=== PATIENT | male | born 1950 | race Caucasian/White ===

== ENCOUNTER → 2021-01-05 15:44 | Outpatient (CLI) | payer MEDICARE, BC, SELFPAY ==
--- NOTE | 2021-01-05 15:51 | DI.MRI.S_ITS ---
PROCEDURE: MR KNEE RT WO CON INDICATIONS: Pain in right knee TECHNIQUE: Noncontrast sagittal PD fast spin echo and T2 fast spin echo with fat saturation, sagittal 3-D FLASH with fat saturation; coronal T1 spin echo and PD fast spin echo with fat saturation, and axial PD fast spin echo with fat saturation through the knee. COMPARISON: None. FINDINGS: Image quality: Diagnostic. Menisci: Patient is status post right total knee arthroplasty. Cruciate ligaments: Significant susceptibility artifacts are noted limits evaluation of cruciate ligaments. No gross full-thickness cruciate ligament rupture is seen. Medial structures: There is suggestion of mildly thickened proximal MCL near its femoral insertion. The posterior oblique ligament, semimembranosus tendon insertions, oblique popliteal ligament, and meniscocapsular junction appear intact. Visualized portions of the pes anserinus tendons appear normal. No abnormal bursal fluid. Lateral structures: Proximal LCL sprain/partial-thickness tear is noted with adjacent elongated cystic structure measures up to 2.6 x 1.4 x 4 cm in size. The popliteus tendon appears normal; the popliteofibular ligament appears intact. The posterosuperior and anteroinferior popliteomeniscal fascicles appear intact. The arcuate and fabellofibular ligaments appear intact, on either side of the lateral inferior geniculate artery. Iliotibial band appears normal. Anterior structures: The quadriceps tendon is intact. Thickened distal patellar tendon near its anterior tibial insertion is seen suggestive of tendinosis and low-grade intrasubstance partial-thickness tear.. Patellar alignment is normal. No femoral trochlear dysplasia or ventral trochlear prominence. No edema in the infrapatellar fat pad. Bones and cartilage: No gross marrow edema. No fracture or dislocation. Joint space: There is moderate amount of joint fluid, no gross intra-articular loose body. No Frankel's cyst. Normal appearing synovial plicae are incidentally noted. IMPRESSION: 1. Patient is status post total knee arthroplasty with significant susceptibility artifacts. No gross marrow edema. No acute fracture or dislocation. Moderate joint effusion, no gross intra-articular loose body. 2. Limited evaluation of cruciate ligaments shows no obvious ACL or PCL rupture. 3. Low-grade proximal MCL sprain near its femoral insertion. 4. Suggestion of low to moderate grade sprain/partial-thickness tear involving lateral collateral ligament with adjacent 2.6 x 1.4 x 4 cm ganglion cyst. Dictated by: Evert Holman M.D. on 01/05/2021 at 17:01 Approved by: Evert Holman M.D. on 01/05/2021 at 17:33
== END ==
PROVIDERS: PCP Family Medicine; Referring Provider Family Medicine; Visit Provider Family Medicine
DX: M25.561 Pain in right knee (principal); S83.411A Sprain of medial collateral ligament of right knee, initial encounter; M25.461 Effusion, right knee; Z96.651 Presence of right artificial knee joint
CPT/HCPCS: 73721

== ENCOUNTER → 2021-07-18 11:26 | Outpatient (CLI) | payer MEDICARE, BC, SELFPAY ==
[2021-07-18 12:38] LABS: Erythrocyte Sedimentation Rate 7 MM/HR (0-15)
[2021-07-18 12:49] LABS: C-Reactive Protein Quant < 0.5 mg/dL (<1.0); Uric Acid 6.3 mg/dL (3.5-8.5)
[2021-07-18 13:00] LABS: Rheumatoid Factor < 8.6 IU/mL (<12.0)
[2021-07-18 13:04] LABS: Hemoglobin A1C% w Est Avg Glu 5.1 % (4.0-6.0)
[2021-07-20 16:41] LABS: ANA Screen, IFA Negative (.)
== END ==
PROVIDERS: PCP Family Medicine; Referring Provider Orthopaedic Surgery; Visit Provider Orthopaedic Surgery
DX: M79.641 Pain in right hand (principal); M19.041 Primary osteoarthritis, right hand; M72.8 Other fibroblastic disorders; M65.30 Trigger finger, unspecified finger; M19.90 Unspecified osteoarthritis, unspecified site
CPT/HCPCS: 36415; 83036; 84550; 85651; 86038; 86140; 86430